=== PATIENT | female | born 1960 | race Caucasian/White ===

== ENCOUNTER 2016-05-21 14:14 | Outpatient (CLI) ==
[2014-09-07 08:51] VITALS: BMI 33.9
--- NOTE | 2016-05-21 14:54 | DI ---
EXAM: Lumbar spine three view HISTORY: Back pain COMPARISON: CT 09/05/1928 TECHNIQUE: Three views lumbar spine were performed FINDINGS: Sacroiliac joints intact. Sacral arcuate lines intact. Mild leftward curvature lumbar s pine. Vertebral bodies normal in height. No fracture. Multilevel marginal osteophyte formation. Moderate intervertebral space narrowing at L4-L5. Mild intervertebral disc is narrowing L5-S1. Mul tilevel facet arthrosis, greatest in the lower lumbar spine. There is a 5 mm anterolisthesis of L4 on L5. Atherosclerotic vascular calcification. IMPRESSION: Chronic discogenic degenerative disease and facet arthrosis with by 5 mm anterolisthesi s of L4 on L5.
== END 2016-05-21 14:15 | disposition home or self-care (01) ==
LOC: LAB 14:14
PROVIDERS: ATTEND Emergency Medicine
DX: M54.9 Dorsalgia, unspecified (principal)

== ENCOUNTER 2016-07-07 10:26 | Outpatient (CLI) ==
[2014-09-07 08:51] VITALS: BMI 33.9
--- NOTE | 2016-07-08 09:00 | MAMMO ---
EXAM: Screening mammogram HISTORY: Screening COMPARISON: 05/24/2015 FINDINGS: MLO and CC views of the right and left breast were performed. The breast tissue is almos t entirely fatty replaced. There is no evidence for mass, asymmetry, distortion, or suspicious calc ifications in either breast. IMPRESSION: 1. No mammographic evidence of malignancy in the right or left breast. 2. Annual screening mammogram is recommended in one year. BIRADS category 1, negative examination
== END 2016-07-07 10:27 | disposition home or self-care (01) ==
LOC: RAD 10:26
PROVIDERS: ATTEND Obstetrics & Gynecology Obstetrics
DX: Z12.31 Encounter for screening mammogram for malignant neoplasm of breast (principal)

== ENCOUNTER 2016-12-07 13:58 | Outpatient (CLI) ==
[2014-09-07 08:51] VITALS: BMI 33.9
[2016-12-07 14:18] LABS: BASOPHILS # (AUTO) 0.1 K/uL (0-0.2); BASOPHILS % (AUTO) 0.6 % (0.0-3.0); EOSINOPHILS # (AUTO) 0.3 K/ul (0.0-0.7); HEMATOCRIT 41.3 % (37.0-47.0); HEMOGLOBIN 14.1 g/dl (12.0-16.0); IMMATURE GRANULOCYTE % (AUTO) 0.2 % (0.0-5.0); LYMPHOCYTES # (AUTO) 2.8 K/uL (0.60-3.4); LYMPHOCYTES % (AUTO) 28.7 (10.0-50.0); MEAN CORPUSCULAR HEMOGLOBIN 29.6 pg (27.0-31.0); MEAN CORPUSCULAR HGB CONC 34.1 (31.8-35.4); MEAN CORPUSCULAR VOLUME 86.8 fl (81.0-99.0); MONOCYTES # (AUTO) 0.6 K/uL (0.4-2.0); MONOCYTES % (AUTO) 6.4 (0-10); NEUTROPHILS # (AUTO) 5.9 K/ul (2.0-6.9); NEUTROPHILS % (AUTO) 61.1; PLATELET COUNT 261 10^3/uL (140-440); RED BLOOD COUNT 4.76 10^6/ul (4.20-5.40); WHITE BLOOD COUNT 9.71 K/ul (4.6-10.2)
[2016-12-07 14:57] LABS: ALBUMIN 3.7 g/dL (3.4-5.0); ALBUMIN/GLOBULIN RATIO 1.16; ANION GAP 16.9; BILIRUBIN,TOTAL 0.25 mg/dL (0.00-1.20); BUN/CREATININE RATIO 16.17; CHOL/HDL RATIO 3.8 (4.5-5.5); CREATININE 0.68 mg/dL (0.60-1.30); POTASSIUM 3.9 mmol/L (3.5-5.10); TOTAL PROTEIN 6.9 g/dL (6.4-8.2)
== END 2016-12-07 13:59 | disposition home or self-care (01) ==
LOC: LAB 13:58
PROVIDERS: ATTEND Internal Medicine
DX: E11.9 Type 2 diabetes mellitus without complications (principal); I10 Essential (primary) hypertension; E78.5 Hyperlipidemia, unspecified
CPT/HCPCS: 36415; 80053; 80061; 83036; 84443; 85025

== ENCOUNTER 2017-09-17 10:40 | Outpatient (CLI) ==
[2014-09-07 08:51] VITALS: BMI 33.9
== END 2017-09-17 10:41 | disposition home or self-care (01) ==
LOC: LAB 10:40
PROVIDERS: ATTEND Internal Medicine
DX: E11.9 Type 2 diabetes mellitus without complications (principal); E78.5 Hyperlipidemia, unspecified; I10 Essential (primary) hypertension
CPT/HCPCS: 36415; 80053; 80061; 83036; 84443; 85025

== ENCOUNTER 2018-10-07 12:28 | Outpatient (CLI) ==
[2014-09-07 08:51] VITALS: BMI 33.9
== END 2018-10-07 12:29 | disposition home or self-care (01) ==
LOC: LAB 12:28
PROVIDERS: ATTEND Internal Medicine
DX: E11.9 Type 2 diabetes mellitus without complications (principal); I10 Essential (primary) hypertension; E78.5 Hyperlipidemia, unspecified
CPT/HCPCS: 36415; 80053; 80061; 83036; 84443; 85025